=== PATIENT | female | born 1980 | race Caucasian/White ===

== ENCOUNTER 2016-07-09 16:55 | Emergency (ER) | payer OTHER ==
[~2016-07-09] VITALS: Ht 160 cm; Wt 104.3 kg
[~2016-07-09 16:55] MED LIST: ESTR1TAB24 PO; LEVO50TA6 PO; ORUDIS PO
--- NOTE | 2016-07-09 17:42 | ED Upper Extremity ---
General Chief Complaint: Laceration Stated Complaint: L HAND THUMB LAC Nursing Triage Note: AMB TO ROOM WAS USING KNIFE AT WORK AVULSED AREA ON L THUMB Nursing Sepsis Screen: No Definite Risk Source: patient Exam Limitations: no limitations History of Present Illness Time seen by provider: 17:39 Initial Comments To ER with an avulsion to the tip of her left thumb that occurred while making a food item at work at [employer] as prior to arrival. Tetanus is up-to-date. Onset: just prior to arrival Severity: mild Pain/Injury Location: left thumb Modifying Factors: Worse With Movement Allergies and Home Medications Allergies Coded Allergies: Penicillins (Verified Allergy, Mild, 10/24/14) Sulfa (Sulfonamide Antibiotics) (Verified Allergy, Mild, 10/24/14) aspirin (Verified Allergy, Mild, 10/24/14) Home Medications Estradiol 1 Mg Tablet, 1 MG PO, (Reported) Levothyroxine Sodium 50 Mcg Tablet, 50 MCG PO, (Reported) [Orudis] , 75 MG PO Q8H PRN for PAIN, #30 Ref 0 Prescribed by: ARACELI ODELL on 10/24/14 0713 Constitutional: see HPI EENTM: see HPI Respiratory: no symptoms reported Cardiovascular: no symptoms reported Genitourinary: no symptoms reported Musculoskeletal: see HPI Skin: no symptoms reported Psychiatric/Neurological: No Symptoms Reported Past Kqddpjl-Pqoihf-Vagqqq Hx Patient Social History Alcohol Use: Denies Use Recreational Drug Use: No Smoking Status: Never a Smoker Recent Foreign Travel: No Contact w/Someone Who Travel: No Recent Infectious Disease Expo: No Recent Hopitalizations: No Surgeries HX Surgeries: Yes Surgeries: Gallbladder, Hysterectomy, Tubal Ligation Respiratory Hx Respiratory Disorders: No Cardiovascular Hx Cardiac Disorders: No Neurological Hx Neurological Disorders: No Genitourinary Hx Genitourinary Disorders: No Gastrointestinal Hx Gastrointestinal Disorders: No Musculoskeletal Hx Musculoskeletal Disorders: Yes Musculoskeletal Disorders: Rheumatoid Arthritis Endocrine Hx Endocrine Disorders: Yes Endocrine Disorders: Hypothyroidsim HEENT HX ENT Disorders: No Cancer Hx Cancer: No Psychosocial Hx Psychiatric Problems: No Integumentary HX Skin/Integumentary Disorder: No Blood Transfusions Hx Blood Disorders: No Physical Exam Vital Signs Vital Sign - Last 12Hours 07/09/16 17:20 Temp 96.5 Pulse 83 Resp 18 B/P (MAP) 130/102 Pulse Ox 97 O2 Delivery Room Air Capillary Refill : Less Than 3 Seconds General Appearance: WD/WN, no apparent distress HEENT: PERRL/EOMI, normal ENT inspection Neck: non-tender, full range of motion Respiratory: no respiratory distress, no accessory muscle use Gastrointestinal: non tender, soft Shoulder: normal inspection, non-tender Elbow/Forearm: normal inspection, Left Wrist: Yes normal inspection, Yes non-tender Hand: Left, laceration Neurologic/Psychiatric: alert, normal mood/affect, oriented x 3 Skin: normal color, warm/dry Progress/Results/Core Measures Results/Orders Vital Signs/I&O Vital Sign - Last 12Hours 07/09/16 17:20 Temp 96.5 Pulse 83 Resp 18 B/P (MAP) 130/102 Pulse Ox 97 O2 Delivery Room Air Blood Pressure Mean: 111 Departure Communication Progress Notes Glue was applied to the fingertip to achieve hemostasis Impression Impression: Primary Impression: Fingertip avulsion Disposition: 01 HOME, SELF-CARE Condition: Stable Departure-Patient Inst. Decision time for Depature: 17:41 Referrals: [facility] (PCP) Primary Care Physician CRISTA DAVIS (Family) Primary Care Physician Patient Instructions: SKIN AVULSION Add. Discharge Instructions: 1. Return to ER for any concerns 2. Follow-up with your doctor next week 3. Wear the finger to protect her at all times for the next 2-3 days All discharge instructions reviewed with patient and/or family. Voiced understanding. VALERIE ROSAS MARKETING RECRUITER Jul 09, 2016 17:41
[2016-07-09 17:59] VITALS: BP 135/92
== END 2016-07-09 18:00 | disposition home or self-care (01) ==
LOC: EDUNIT# 16:55 → ER 16:57
DX: S61.012A Laceration without foreign body of left thumb without damage to nail, initial encounter (principal); W26.0XXA Contact with knife, initial encounter; Y92.511 Restaurant or cafe as the place of occurrence of the external cause; Y93.G1 Activity, food preparation and clean up; Y99.0 Civilian activity done for income or pay
CPT/HCPCS: 99282

== ENCOUNTER 2018-02-25 00:12 | Emergency (ER) | payer SELFPAY ==
[~2018-02-25] VITALS: Ht 160 cm; Wt 108.9 kg
--- OUTSIDE RECORDS SUMMARY | 2018-02-25 00:18 | XMS REPORT ---
Author Author KISHA HAM Organization [facility] Address [address] 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 [id number] [address] Sep, 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 [facility] [id number] [address] July, Lumbago with sciatica, left side M54.42 [facility] [id number] [address] Jun, [facility] [id number] [address] Jun, [facility] [id number] [place] [address] May, Lumbago with sciatica, left side M54.42 [address] [address] May, [address] [id number] [place] [address] Apr, 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 and BMI 40.0-44.9, adult Z68.41 [address] [id number] [place] [address] Apr, [address] [address] Apr, Mild episode of recurrent major depressive disorder F33.0 and BMI 40.0-44.9, adult Z68.41 [address] [address] [address] [address] Mar, Hyperlipidemia LDL goal <100 E78.5 [place] [address] [address] Mar, [place] [id number] [place] [address] Mar, Hyperlipidemia LDL goal <100 E78.5 ; Elevated blood sugar level R73.9 and Elevated rheumatoid factor R76.8 [place] [id number] [place] [address] Mar, Arthralgia, unspecified joint M25.50 ; BMI 40.0-44.9, adult Z68.41 ; Lumbago with sciatica, left side M54.42 ; Hyperlipidemia LDL goal <100 E78.5 and Hx of bipolar disorder Z86.59 [address] [place] [id number] [place] [address] Mar, [facility] [id number] [place] [address] Feb, Other viral agents as the cause of diseases classified elsewhere B97.89 ; Acute upper respiratory infection, unspecified J06.9 and BMI 40.0-44.9, adult Z68.41 [id number] [place] [address] Jun, Positive depression screening R68.89 ; Anxiety, generalized F41.1 and Severe episode of recurrent major depressive disorder, without psychotic features F33.[address] [address] Jun, Anxiety, generalized F41.1 ; Severe episode of recurrent major depressive disorder, without psychotic features F33.2 and Bipolar 1 disorder with moderate carin F31.[address] [address] Jun, [address] [address] Apr, Puncture wound T14.8 and Struck by chicken, initial encounter W61.32XA [address] [address] Apr, Puncture wound T14.8 and Struck by chicken, initial encounter W61.32XA [id number] [place] [address] 8962 Apr, [address] [address] Apr, Fever, unspecified fever cause R50.9 and Eustachian tube dysfunction, bilateral H69.83 [id number] [place] [address] Feb, Severe episode of recurrent major depressive disorder, without psychotic features F33.2 and Hyperlipidemia LDL goal <100 E78.5 [id number] [place] [address] Jan, Anxiety, generalized F41.1 ; Severe episode of recurrent major depressive disorder, without psychotic features F33.2 ; Bipolar 1 disorder with moderate carin F31.12 and Positive depression screening R68.89 [facility] [id number] [address] Jan, Chest discomfort R07.89 and Positive depression screening R68.89 [facility] [address] [address] Oct, Laceration T14.8 [facility] [address] [id number] Aug, Dental examination V72.2 IMMUNIZATIONS No Known Immunizations SOCIAL HISTORY Never Assessed REASON FOR VISIT Rheum Records PLAN OF CARE VITAL SIGNS MEDICATIONS Medication Instructions Dosage Frequency Start Date End Date Duration Status Indomethacin 50 mg Orally Twice a day 1 capsule with food or milk 12h Mar, 90 days Active RESULTS No Results PROCEDURES No Known procedures INSTRUCTIONS MEDICATIONS ADMINISTERED No Known Medications MEDICAL (GENERAL) HISTORY Type Description Date Medical History Bipolar Disorder Medical History hx seizures, grand-mal up to age 2 y/o Medical History RA Medical History hypercholesterolemia Surgical History cholecystectomy 2000 Surgical History tubal ligation 2002 Surgical History hysterectomy 2014 Hospitalization History Childbirth Hospitalization History Suicide attempt, inpatient treatment [facility] 2011
--- OUTSIDE RECORDS SUMMARY | 2018-02-25 00:18 | XMS REPORT ---
Author Author KISHA HAM Organization [facility] Address [address] [place] [address] Care Team Providers Care Patient Transition Specialist Name Role Phone KISHA HAM Unavailable PROBLEMS Type Condition ICD9-CM Code UPW03-GA Code Onset Dates Condition Status SNOMED Code Problem Anxiety, generalized F41.1 Active 45587094 Problem Bipolar 1 disorder with moderate carin F31.12 Active 20826725 Problem Severe episode of recurrent major depressive disorder, without psychotic features F33.2 Active 17632323 Problem Abnormal glucose level R73.09 Active 778624807 Problem Hyperlipidemia LDL goal <100 E78.5 Active 03893996 Problem Elevated rheumatoid factor R76.8 Active 719409045 Problem 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 Active 742892719 Problem Mild episode of recurrent major depressive disorder F33.0 Active 994050538 Problem Arthralgia, unspecified joint M25.50 Active 52593345 Problem Lumbago with sciatica, left side M54.42 Active 587760202 Problem Elevated blood sugar level R73.9 Active 71299198 Problem Hx of bipolar disorder Z86.59 Active 305733198 ALLERGIES No Information ENCOUNTERS Encounter Location Date Diagnosis [facility] [id number] [address] Sep, 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 [facility] [id number] [address] July, Lumbago with sciatica, left side M54.42 [facility] [id number] [address] Jun, [facility] [id number] [address] Jun, [facility] [id number] [place] [address] May, Lumbago with sciatica, left side M54.42 [place] [address] [address] May, [address] [id number] [place] [address] Apr, 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 and BMI 40.0-44.9, adult Z68.41 [address] [id number] [place] [address]- [address] Apr, [place] [address] [address] [address] Apr, Mild episode of recurrent major depressive disorder F33.0 and BMI 40.0-44.9, adult Z68.41 [place] [address] [address] [address] Mar, Hyperlipidemia LDL goal <100 E78.5 [place] [address] [address] Mar, [place] [id number] [place] [address]- [address] Mar, Hyperlipidemia LDL goal <100 E78.5 ; Elevated blood sugar level R73.9 and Elevated rheumatoid factor R76.8 [place] [id number] [place] [address] Mar, Arthralgia, unspecified joint M25.50 ; BMI 40.0-44.9, adult Z68.41 ; Lumbago with sciatica, left side M54.42 ; Hyperlipidemia LDL goal <100 E78.5 and Hx of bipolar disorder Z86.59 [address] [id number] [place] [address] Mar, [facility] [id number] [place] [address] Feb, Other viral agents as the cause of diseases classified elsewhere B97.89 ; Acute upper respiratory infection, unspecified J06.9 and BMI 40.0-44.9, adult Z68.41 [id number] [place] [address] Jun, Positive depression screening R68.89 ; Anxiety, generalized F41.1 and Severe episode of recurrent major depressive disorder, without psychotic features F33.[address] [address] Jun, Anxiety, generalized F41.1 ; Severe episode of recurrent major depressive disorder, without psychotic features F33.2 and Bipolar 1 disorder with moderate carin F31.[address] [address]- [address] Jun, [address] [address] Apr, Puncture wound T14.8 and Struck by chicken, initial encounter W61.32XA [address] [address] Apr, Puncture wound T14.8 and Struck by chicken, initial encounter W61.[address] [place] [address]- [address]47 Apr, [address] [address] Apr, Fever, unspecified fever cause R50.9 and Eustachian tube dysfunction, bilateral H69.83 [address] [place] [address]- [address] Feb, Severe episode of recurrent major depressive disorder, without psychotic features F33.2 and Hyperlipidemia LDL goal <100 E78.5 [address] [place] [address]- [address] Jan, Anxiety, generalized F41.1 ; Severe episode of recurrent major depressive disorder, without psychotic features F33.2 ; Bipolar 1 disorder with moderate carin F31.12 and Positive depression screening R68.89 [facility] [address] [address] Jan, Chest discomfort R07.89 and Positive depression screening R68.89 [facility] [address] [address] Oct, Laceration T14.[address] [facility] [address] [id number] Aug, Dental examination V72.2 IMMUNIZATIONS No Known Immunizations SOCIAL HISTORY Never Assessed REASON FOR VISIT Requests return call PLAN OF CARE VITAL SIGNS MEDICATIONS Unknown Medications RESULTS No Results PROCEDURES No Known procedures [...]
--- OUTSIDE RECORDS SUMMARY | 2018-02-25 00:18 | XMS REPORT ---
Author Author KISHA HAM Organization [facility] Address [address] [place] [address] Care Team Providers Care Heater Worker Name Role Phone KISHA HAM Unavailable PROBLEMS Type Condition ICD9-CM Code KBI69-SA Code Onset Dates Condition Status SNOMED Code Problem Anxiety, generalized F41.1 Active 40661211 Problem Bipolar 1 disorder with moderate carin F31.12 Active 33050883 Problem Severe episode of recurrent major depressive disorder, without psychotic features F33.2 Active 67467762 Problem Abnormal glucose level R73.09 Active 617909211 Problem Hyperlipidemia LDL goal <100 E78.5 Active 83884049 Problem Elevated rheumatoid factor R76.8 Active 580280317 Problem 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 Active 389107505 Problem Mild episode of recurrent major depressive disorder F33.0 Active 671000421 Problem Arthralgia, unspecified joint M25.50 Active 42991819 Problem Lumbago with sciatica, left side M54.42 Active 224633562 Problem Elevated blood sugar level R73.9 Active 14985537 Problem Hx of bipolar disorder Z86.59 Active 714015612 ALLERGIES Substance Reaction Event Type Date Status Sulfamethoxazole-Trimethoprim rash Drug Allergy Apr, Active Rocephin rash Drug Allergy Apr, Active Penicillin V Potassium rash Drug Allergy Apr, Active Iodine rash Drug Allergy Apr, Active Doxy-Caps rash Drug Allergy Apr, Active 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 Drug Allergy Apr, Active ENCOUNTERS Encounter Location Date Diagnosis [facility] [address], [place] [address] July, Lumbago with sciatica, left side M54.42 [facility] [id number], [place] [address] Jun, [facility] [address], [place] [address] Jun, [id number] [place] [address] May, Lumbago with sciatica, left side M54.42 [place] [id number] [place] [address]- [address] May, [place] [id number] [place] [address]- [address]95 Apr, 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 and BMI 40.0-44.9, adult Z68.41 [place] [id number] [place] [address]- [address] Apr, [address] [id number] [place] [address]- 2865 Apr, Mild episode of recurrent major depressive disorder F33.0 and BMI 40.0-44.9, adult Z68.41 [place] [id number] [place] [address] 8[address]- 8866 Mar, Hyperlipidemia LDL goal <100 E78.5 [place] [id number] [place] [address]- 2803 Mar, [address] [place] [address]36- [address] Mar, Hyperlipidemia LDL goal <100 E78.5 ; Elevated blood sugar level R73.9 and Elevated rheumatoid factor R76.8 [place] [place] [place] [address]- [address]60 Mar, Arthralgia, unspecified joint M25.50 ; BMI 40.0-44.9, adult Z68.41 ; Lumbago with sciatica, left side M54.42 ; Hyperlipidemia LDL goal <100 E78.5 and Hx of bipolar disorder Z86.59 [place] [id number] [place] [address]- [address] Mar, [facility] [address] [place] [address] Feb, Other viral agents as the cause of diseases classified elsewhere B97.89 ; Acute upper respiratory infection, unspecified J06.9 and BMI 40.0-44.9, adult Z68.41 [id number] [place] [address] Jun, Positive depression screening R68.89 ; Anxiety, generalized F41.1 and Severe episode of recurrent major depressive disorder, without psychotic features F33.2 [id number] [place] [address]- [address]77 Jun, Anxiety, generalized F41.1 ; Severe episode of recurrent major depressive disorder, without psychotic features F33.2 and Bipolar 1 disorder with moderate carin F31.12 [address] [place] [address] 9[address]- 86[address] Jun, [place] [id number] [place] [address] 47[address]- [address] Apr, Puncture wound T14.8 and Struck by chicken, initial encounter W61.32XA [address] [place] [address] 93974- 9373 Apr, Puncture wound T14.8 and Struck by chicken, initial encounter W61.32XA [address] [place] [address] 12981- 7354 Apr, [address] [place] [address] 19669- 7042 Apr, Fever, unspecified fever cause R50.9 and Eustachian tube dysfunction, bilateral H69.83 [address] [place] [address]- 0556 Feb, Severe episode of recurrent major depressive disorder, without psychotic features F33.2 and Hyperlipidemia LDL goal <100 E78.5 [id number] [address] Jan, 2016 Anxiety, generalized F41.1 ; Severe episode of recurrent major depressive disorder, without psychotic features F33.2 ; Bipolar 1 disorder with moderate carin F31.12 and Positive depression screening R68.89 [facility] [id number] [address] 30 Jan, 2016 Chest discomfort R07.89 and Positive depression screening R68.89 [facility] [id number] [address] Oct, Laceration T14.8 [facility] [address] [place] [id number] Aug, Dental examination V72.2 IMMUNIZATIONS No Known Immunizations SOCIAL HISTORY Never Assessed REASON FOR VISIT RA Consult-Jose DICKERSON PLAN OF CARE Activity Details Follow Up we will call (need records) Reason: VITAL SIGNS Height 63 in 2017-05-15 Weight 236.3 lbs 2017-05-15 Temperature 97.6 degrees Fahrenheit 2017-05-15 Heart Rate 86 bpm 2017-05-15 Respiratory Rate 18 2017-05-15 BMI 41.85 kg/m2 2017-05-15 Blood pressure systolic 132 mmHg 2017-05-15 Blood pressure diastolic 78 mmHg 2017-05-15 MEDICATIONS Medication Instructions Dosage Frequency Start Date End Date Duration Status Lovastatin 20 MG Orally Once a day 1 tablet with a meal 24h Feb, 90 Active Paxil 10 MG Orally Once a day 1 tablet in the morning 24h Feb, 30 day(s) Not-Taking Meloxicam 15 MG Orally Once a day 1 tablet 24h Jun, 30 day(s) Not-Taking Indomethacin 50 mg Orally Twice a day 1 capsule with food or milk 12h Mar, May, 45 days Active RESULTS No Results PROCEDURES Procedure Date Ordered Result Body Site CCP ANTIBODY May 15, 2017 VENIPUNCT, ROUTINE* May 15, 2017 INSTRUCTIONS MEDICATIONS ADMINISTERED No Known Medications MEDICAL (GENERAL) HISTORY Type Description Date Medical History Bipolar Disorder Medical History hx seizures, grand-mal up to age 2 y/o Medical History RA Medical History hypercholesterolemia Surgical History cholecystectomy 2000 Surgical History tubal ligation 2002 Surgical History hysterectomy 2013 Hospitalization History Childbirth Hospitalization History Suicide attempt, inpatient treatment [facility] 2012
--- OUTSIDE RECORDS SUMMARY | 2018-02-25 00:18 | XMS REPORT ---
Author Author KISHA HAM Organization [facility] Address [address] [place] [address] Care Team Providers Care Manager Rail Name Role Phone KISHA HAM Unavailable PROBLEMS Type Condition ICD9-CM Code [id number] Code Onset Dates Condition Status SNOMED Code Problem Anxiety, generalized F41.1 Active 78967668 Problem Bipolar 1 disorder with moderate carin F31.12 Active 67807399 Problem Severe episode of recurrent major depressive disorder, without psychotic features F33.2 Active 35293961 Problem Abnormal glucose level R73.09 Active 349953936 Problem Hyperlipidemia LDL goal <100 E78.5 Active 02961100 Problem Elevated rheumatoid factor R76.8 Active 221463057 Problem 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 [id number] [address] Sep, 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 [facility] [id number] [address] July, Lumbago with sciatica, left side M54.42 [facility] [id number] [address] Jun, [facility] [id number] [address] Jun, [facility] [id number] [place] [address] May, Lumbago with sciatica, left side M54.42 [place] [address] [address] [address] May, [place] [id number] [place] [address] Apr, 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 and BMI 40.0-44.9, adult Z68.41 [place] [id number] [place] [address] Apr, [place] [address] [address] Apr, Mild episode of recurrent major depressive disorder F33.0 and BMI 40.0-44.9, adult Z68.41 [place] [address] [address] Mar, Hyperlipidemia LDL goal <100 E78.5 [place] [address] [address] Mar, [place] [id number] [place] [address]42[address] 7[address] Mar, Hyperlipidemia LDL goal <100 E78.5 ; Elevated blood sugar level R73.9 and Elevated rheumatoid factor R76.8 [place] [id number] [place] [address] 3[address] Mar, Arthralgia, unspecified joint M25.50 ; BMI 40.0-44.9, adult Z68.41 ; Lumbago with sciatica, left side M54.42 ; Hyperlipidemia LDL goal <100 E78.5 and Hx of bipolar disorder Z86.59 [place] [id number] [place] [address]46- 6[address] Mar, [facility] WALK IN [facility] [id number] [place] [address] Feb, Other viral agents as the cause of diseases classified elsewhere B97.89 ; Acute upper respiratory infection, unspecified J06.9 and BMI 40.0-44.9, adult Z68.41 [address] [id number] [place] [address] 79446- 9658 Jun, Positive depression screening R68.89 ; Anxiety, generalized F41.1 and Severe episode of recurrent major depressive disorder, without psychotic features F33.[address] [address] Jun, Anxiety, generalized F41.1 ; Severe episode of recurrent major depressive disorder, without psychotic features F33.2 and Bipolar 1 disorder with moderate carin F31.[address] [address]- [address] Jun, [address] [address] Apr, Puncture wound T14.8 and Struck by chicken, initial encounter W61.32XA [address] [address] Apr, Puncture wound T14.8 and Struck by chicken, initial encounter W61.32XA [place] [id number] [place] [address] 3792 Apr, [address] [address]- [address] Apr, Fever, unspecified fever cause R50.9 and Eustachian tube dysfunction, bilateral H69.83 [place] [id number] [place] [address] 0[address]- [address] Feb, Severe episode of recurrent major depressive disorder, without psychotic features F33.2 and Hyperlipidemia LDL goal <100 E78.5 [address] [id number] [place] [address] 67916- 2[address] Jan, Anxiety, generalized F41.1 ; Severe episode of recurrent major depressive disorder, without psychotic features F33.2 ; Bipolar 1 disorder with moderate carin F31.12 and Positive depression screening R68.89 [facility] [id number] [address] Jan, Chest discomfort R07.89 and Positive depression screening R68.89 [facility] [address] [address] Oct, Laceration T14.8 [facility] [id number] [id number] Aug, Dental examination V72.2 IMMUNIZATIONS No Known Immunizations SOCIAL HISTORY Never Assessed REASON FOR VISIT Orders from Results PLAN OF CARE VITAL SIGNS MEDICATIONS Medication Instructions Dosage Frequency Start Date End Date Duration Status Leflunomide 20 MG Orally Once a day x 3 days, then decrease to 1 tablet daily thereafter 5 tablets with food Sep, 30 days Active RESULTS No Results PROCEDURES No [...]
--- OUTSIDE RECORDS SUMMARY | 2018-02-25 00:18 | XMS REPORT ---
Author Author CRISTA DAVIS [facility] Address [address] [place] [address] Care Team Providers Care Dimension Warehouse Supervisor Name Role Phone CRISTA DAVIS Unavailable PROBLEMS Type Condition ICD9-CM Code INC84-[id number] Code Onset Dates Condition Status SNOMED Code Problem Anxiety, generalized F41.1 Active 57959406 Problem Bipolar 1 disorder with moderate carin F31.12 Active 19744438 Problem Severe episode of recurrent major depressive disorder, without psychotic features F33.2 Active 42100939 Problem Abnormal glucose level R73.09 Active 664760654 Problem Hyperlipidemia LDL goal <100 E78.5 Active 42950846 Problem Elevated rheumatoid factor R76.8 Active 632798458 Problem 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 Active 215833493 Problem Mild episode of recurrent major depressive disorder F33.0 Active 896382273 Problem Arthralgia, unspecified joint M25.50 Active 87782988 Problem Lumbago with sciatica, left side M54.42 Active 778401277 Problem Elevated blood sugar level R73.9 Active 30400027 Problem Hx of bipolar disorder Z86.59 Active 617113435 ALLERGIES No Information ENCOUNTERS Encounter Location Date Diagnosis [facility] [address], [place] [address] Sep, 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 [facility] [address], [place] [address] July, Lumbago with sciatica, left side M54.42 [facility] [address], [place] [address] Jun, [facility] [address], [place] [address] Jun, [facility] [id number] [place] [address] May, Lumbago with sciatica, left side M54.42 [place] [id number] [place] [address]- [address] May, [place] [id number] [place] [address] 61465- 8407 Apr, 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 and BMI 40.0-44.9, adult Z68.41 [place] [id number] [place] [address]- [address] Apr, [place] [address] [address] Apr, Mild episode of recurrent major depressive disorder F33.0 and BMI 40.0-44.9, adult Z68.41 [place] [id number] [place] [address]39- 40[address] Mar, Hyperlipidemia LDL goal <100 E78.5 [place] [id number] [place] [address]22- 9274 Mar, [place] [id number] [place] [address] 55253- 1663 Mar, Hyperlipidemia LDL goal <100 E78.5 ; Elevated blood sugar level R73.9 and Elevated rheumatoid factor R76.8 [place] [id number] [place] [address] 62[address]- 7[address] Mar, Arthralgia, unspecified joint M25.50 ; BMI 40.0-44.9, adult Z68.41 ; Lumbago with sciatica, left side M54.42 ; Hyperlipidemia LDL goal <100 E78.5 and Hx of bipolar disorder Z86.59 [place] [id number] [place] [address]- [address] Mar, [facility] WALK IN [facility] [id number] [place] [address] Feb, Other viral agents as the cause of diseases classified elsewhere B97.89 ; Acute upper respiratory infection, unspecified J06.9 and BMI 40.0-44.9, adult Z68.41 [id number] [place] [address]32- 6[address] Jun, Positive depression screening R68.89 ; Anxiety, generalized F41.1 and Severe episode of recurrent major depressive disorder, without psychotic features F33.2 [address] [place] [address]- [address] Jun, Anxiety, generalized F41.1 ; Severe episode of recurrent major depressive disorder, without psychotic features F33.2 and Bipolar 1 disorder with moderate carin F31.12 [address] [place] [address]69- 8644 Jun, [address] [address]- [address] Apr, Puncture wound T14.8 and Struck by chicken, initial encounter W61.32XA [address] [address] [address] [place] [address] 82433- 8857 Apr, Puncture wound T14.8 and Struck by chicken, initial encounter W61.32XA [address] [address] [place] [address] 46926- 9448 Apr, [address] [place] [address] 54044- 4660 Apr, Fever, unspecified fever cause R50.9 and Eustachian tube dysfunction, bilateral H69.[address] [address]- [address] Feb, Severe episode of recurrent major depressive disorder, without psychotic features F33.2 and Hyperlipidemia LDL goal <100 E78.5 [address] [address] [address] [place] [address] 59034- 90[address] Jan, Anxiety, generalized F41.1 ; Severe episode of recurrent major depressive disorder, without psychotic features F33.2 ; Bipolar 1 disorder with moderate carin F31.12 and Positive depression screening R68.89 [facility] [address] [address] Jan, Chest discomfort R07.89 and Positive depression screening R68.89 [facility] WALK IN [facility] [address], [place] [address] Oct, Laceration T14.8 [facility] [address] [id number] Aug, Dental examination V72.2 IMMUNIZATIONS No Known Immunizations SOCIAL HISTORY Never Assessed REASON FOR VISIT PLAN OF CARE VITAL SIGNS MEDICATIONS Unknown [...]
--- OUTSIDE RECORDS SUMMARY | 2018-02-25 00:19 | XMS REPORT ---
Author Author CRISTA DAVIS Organization [facility] Address [address] [place] [address] Care Team Providers Care Cupola Melter Helper Name Role Phone CRISTA DAVIS Unavailable PROBLEMS Type Condition ICD9-CM Code DCD54-[id number] Code Onset Dates Condition Status SNOMED Code Problem Anxiety, generalized F41.1 Active 53722134 Problem Severe episode of recurrent major depressive disorder, without psychotic features F33.2 Active 05470645 Problem Positive depression screening R68.89 Active 488006194318491 Problem Hyperlipidemia LDL goal <100 E78.5 Active 46067917 Problem Bipolar 1 disorder with moderate carin F31.12 Active 85747286 Problem Chest discomfort R07.89 Active 841745874 ALLERGIES Substance Reaction Event Type Date Status Sulfamethoxazole-Trimethoprim Unknown Drug Allergy Feb, Active Penicillin V Potassium Unknown Drug Allergy Feb, Active Iodine Unknown Drug Allergy Feb, Active Doxy-Caps Unknown Drug Allergy Feb, Active Aspir-81 Unknown Drug Allergy Feb, Active SOCIAL HISTORY No smoking Hx information available PLAN OF CARE Activity Details Follow Up 4 Weeks Reason:BH chol med VITAL SIGNS Height 63 in 2016-03-07 Weight 230.4 lbs 2016-03-07 Temperature 97.6 degrees Fahrenheit 2016-03-07 Heart Rate 96 bpm 2016-03-07 Respiratory Rate 2016-03-07 BMI 40.81 kg/m2 2016-03-07 Blood pressure systolic 136 mmHg 2016-03-07 Blood pressure diastolic 86 mmHg 2016-03-07 MEDICATIONS Medication Instructions Dosage Frequency Start Date End Date Duration Status Lovastatin 10 MG Orally Once a day 1 tablet with a meal 24h Feb, 90 Active Paxil 10 MG Orally Once a day 1 tablet in the morning 24h Feb, 30 day(s) Active RESULTS No Results PROCEDURES Procedure Date Ordered Related Diagnosis Body Site Office Visit, Est Pt., Level 3 Mar 07, 2016 IMMUNIZATIONS No Known Immunizations
--- OUTSIDE RECORDS SUMMARY | 2018-02-25 00:19 | XMS REPORT ---
Author Author CRISTA DAVIS [facility] Address [address] [place] [address] Care Team Providers Care Crotch Piece Baster Name Role Phone CRISTA DAVIS Unavailable PROBLEMS Type Condition ICD9-CM Code MYI63-CA Code Onset Dates Condition Status SNOMED Code Problem Anxiety, generalized F41.1 Active 91235523 Problem Bipolar 1 disorder with moderate carin F31.12 Active 32879901 Problem Severe episode of recurrent major depressive disorder, without psychotic features F33.2 Active 22187740 Problem Abnormal glucose level R73.09 Active 492688524 Problem Hyperlipidemia LDL goal <100 E78.5 Active 94940821 Problem Elevated rheumatoid factor R76.8 Active 918991960 Problem 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 [address] [place] [address] July, Lumbago with sciatica, left side M54.42 [facility] [address], [place] [address] Jun, [facility] [id number] [place] [address]68- [address]265 Jun, [facility] [address] [address] May, Lumbago with sciatica, left side M54.42 [place] [address] [place] [address]69- [address] May, [place] [address] [address] Apr, 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 and BMI 40.0-44.9, adult Z68.[address] [address] Apr, [place] [address] [place] [address] 51467- 9641 Apr, Mild episode of recurrent major depressive disorder F33.0 and BMI 40.0-44.9, adult Z68.41 [place] [address] [place] [address] 24052- 3302 Mar, Hyperlipidemia LDL goal <100 E78.5 [address] [id number] [place] [address] 72276- 1340 Mar, [place] [id number] [place] [address] 94535- 7627 Mar, Hyperlipidemia LDL goal <100 E78.5 ; Elevated blood sugar level R73.9 and Elevated rheumatoid factor R76.8 [address] [place] [place] [address] 46762- 6926 Mar, Arthralgia, unspecified joint M25.50 ; BMI 40.0-44.9, adult Z68.41 ; Lumbago with sciatica, left side M54.42 ; Hyperlipidemia LDL goal <100 E78.5 and Hx of bipolar disorder Z86.59 [address] [place] [address]25- [address] Mar, [facility] IN [facility] [address] [place] [address] -[address] Feb, Other viral agents as the cause of diseases classified elsewhere B97.89 ; Acute upper respiratory infection, unspecified J06.9 and BMI 40.0-44.9, adult Z68.41 [address] [place] [address] 93843- 5283 Jun, Positive depression screening R68.89 ; Anxiety, generalized F41.1 and Severe episode of recurrent major depressive disorder, without psychotic features F33.[address] [address]- [address] Jun, Anxiety, generalized F41.1 ; Severe episode of recurrent major depressive disorder, without psychotic features F33.2 and Bipolar 1 disorder with moderate carin F31.[address] [address]- [address] Jun, [place] [address] [address]87 Apr, Puncture wound T14.8 and Struck by chicken, initial encounter W61.32XA [address] 36[address]- 0863 Apr, Puncture wound T14.8 and Struck by chicken, initial encounter W61.32XA [address] 288128- 1120 Apr, [address] 7[address]23- 7817 Apr, Fever, unspecified fever cause R50.9 and Eustachian tube dysfunction, bilateral H69.83 [address] [place] [address] 56271- 9500 Feb, Severe episode of recurrent major depressive disorder, without psychotic features F33.2 and Hyperlipidemia LDL goal <100 E78.5 [place] [address]- [address]058 Jan, Anxiety, generalized F41.1 ; Severe episode of recurrent major depressive disorder, without psychotic features F33.2 ; Bipolar 1 disorder with moderate carin F31.12 and Positive depression screening R68.89 [address] [address] Jan, Chest discomfort R07.89 and Positive depression screening R68.89 [facility] [address] [facility] [id number] [address] Oct, Laceration T14.8 [facility] [address] [facility] [id number] [address] Aug, Dental examination V72.2 IMMUNIZATIONS No Known Immunizations SOCIAL HISTORY Never Assessed REASON FOR VISIT Schedule eye exam PLAN OF CARE VITAL SIGNS MEDICATIONS Unknown [...]
--- OUTSIDE RECORDS SUMMARY | 2018-02-25 00:19 | XMS REPORT ---
Author Author KISHA HAM Organization [facility] [place] Address [address] [place] [address] Care Team Providers Care Cartography/Mapping Technician Name Role Phone KISHA HAM Unavailable PROBLEMS Type Condition ICD9-CM Code ACN04-MP Code Onset Dates Condition Status SNOMED Code Problem Anxiety, generalized F41.1 Active 19813409 Problem Bipolar 1 disorder with moderate carin F31.12 Active 74410259 Problem Severe episode of recurrent major depressive disorder, without psychotic features F33.2 Active 39712122 Problem Abnormal glucose level R73.09 Active 981727140 Problem Hyperlipidemia LDL goal <100 E78.5 Active 13157850 Problem Elevated rheumatoid factor R76.8 Active 635468430 Problem 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 Active 615203764 Problem Mild episode of recurrent major depressive disorder F33.0 Active 550505742 Problem Arthralgia, unspecified joint M25.50 Active 56753604 Problem Lumbago with sciatica, left side M54.42 Active 820856046 Problem Elevated blood sugar level R73.9 Active 59593308 Problem Hx of bipolar disorder Z86.59 Active 364468375 ALLERGIES No Information ENCOUNTERS Encounter Location Date Diagnosis [facility] [place] [id number] [address] July, Lumbago with sciatica, left side M54.42 [facility] [place] [address], [place] [address] Jun, [facility] [place] [id number] [place] [address]77[address] 6808 Jun, [facility] [place] [id number], [place] [address] May, Lumbago with sciatica, left side M54.42 [facility] [place] [id number] [place] [address] 43077- 6419 May, [place] [id number] [place] [address] 66655- 8408 Apr, 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 and BMI 40.0-44.9, adult Z68.41 [place] [id number] [place] [address] 01512- 0687 Apr, [place] [id number] [place] [address] 84093- 0812 Apr, Mild episode of recurrent major depressive disorder F33.0 and BMI 40.0-44.9, adult Z68.41 [place] [address] [place] [address] 97188- 2851 Mar, Hyperlipidemia LDL goal <100 E78.5 [place] [address] [address] Mar, [place] [id number] [place] [address] 05544- 9048 Mar, Hyperlipidemia LDL goal <100 E78.5 ; Elevated blood sugar level R73.9 and Elevated rheumatoid factor R76.8 [place] [id number] [place] [address] 08904- 9164 Mar, Arthralgia, unspecified joint M25.50 ; BMI 40.0-44.9, adult Z68.41 ; Lumbago with sciatica, left side M54.42 ; Hyperlipidemia LDL goal <100 E78.5 and Hx of bipolar disorder Z86.59 [place] [address] [place] [address] 81985- 0070 Mar, [facility] [address] [place] [address] [place] [address] 89758 -2619 Feb, Other viral agents as the cause of diseases classified elsewhere B97.89 ; Acute upper respiratory infection, unspecified J06.9 and BMI 40.0-44.9, adult Z68.[address] [id number] [place] [address] 85143- 5946 Jun, Positive depression screening R68.89 ; Anxiety, generalized F41.1 and Severe episode of recurrent major depressive disorder, without psychotic features F33.2 [place] [address] [place] [address] 64994 7392 Jun, Anxiety, generalized F41.1 ; Severe episode of recurrent major depressive disorder, without psychotic features F33.2 and Bipolar 1 disorder with moderate carin F31.12 [place] [address] [place] [address] 04359- 5071 Jun, [place] [id number] 843 Apr, Puncture wound T14.8 and Struck by chicken, initial encounter W61.32XA [address] [address]- 7048 Apr, Puncture wound T14.8 and Struck by chicken, initial encounter W61.32XA [address] 11343- 0102 Apr, [address] 17768- 4071 Apr, Fever, unspecified fever cause R50.9 and Eustachian tube dysfunction, bilateral H69.83 [place] [id number] [place] [address] 59877- 7177 Feb, Severe episode of recurrent major depressive disorder, without psychotic features F33.2 and Hyperlipidemia LDL goal <100 E78.5 [place] [address]998500- 2886 Jan, Anxiety, generalized F41.1 ; Severe episode of recurrent major depressive disorder, without psychotic features F33.2 ; Bipolar 1 disorder with moderate carin F31.12 and Positive depression screening R68.89 [address] [place] [address] Jan, Chest discomfort R07.89 and Positive depression screening R68.89 [facility] [address] [facility] [place] [id number] [place] [address] Oct, Laceration T14.8 [facility] [address] [facility] [id number] [id number] Aug, Dental examination V72.2 IMMUNIZATIONS No Known Immunizations SOCIAL HISTORY Never Assessed REASON FOR VISIT refill request PLAN OF CARE VITAL SIGNS MEDICATIONS Unknown Medications RESULTS No Results PROCEDURES No Known procedures INSTRUCTIONS MEDICATIONS ADMINISTERED No Known Medications MEDICAL (GENERAL) HISTORY Type Description Date Medical History Bipolar Disorder Medical History hx seizures, grand-mal up to age 2 y/o Medical History RA Medical History hypercholesterolemia Surgical History cholecystectomy 2001 Surgical History tubal ligation 2002 Surgical History hysterectomy 2014 Hospitalization History Childbirth Hospitalization History Suicide attempt, inpatient treatment [facility] MENDE[facility] 2011
--- OUTSIDE RECORDS SUMMARY | 2018-02-25 00:19 | XMS REPORT ---
Author Author CRISTA DAVIS [facility] Address [address] [place] [address] Care Team Providers Care Learning Disabled Teacher Name Role Phone CRISTA DAVIS Unavailable PROBLEMS Type Condition ICD9-CM Code MMH36-KI Code Onset Dates Condition Status SNOMED Code Problem Anxiety, generalized F41.1 Active 53681473 Problem Bipolar 1 disorder with moderate carin F31.12 Active 16868265 Problem Severe episode of recurrent major depressive disorder, without psychotic features F33.2 Active 45477737 Problem Abnormal glucose level R73.09 Active 563187289 Problem Hyperlipidemia LDL goal <100 E78.5 Active 33052172 Problem Elevated rheumatoid factor R76.8 Active 987785083 Problem 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 Active 418245866 Problem Mild episode of recurrent major depressive disorder F33.0 Active 252151692 Problem Arthralgia, unspecified joint M25.50 Active 80987456 Problem Lumbago with sciatica, left side M54.42 Active 944200611 Problem Elevated blood sugar level R73.9 Active 28658740 Problem Hx of bipolar disorder Z86.59 Active 808507383 ALLERGIES No Information ENCOUNTERS Encounter Location Date Diagnosis [facility] [address] [place] [address] 93737- 6074 July, Lumbago with sciatica, left side M54.42 [facility] [address], [place] [address] Jun, [facility] [id number] [place] [address] 98164- 6146 Jun, [facility] [address], [place] [address] May, Lumbago with sciatica, left side M54.42 [place] [address] [place] [address] 20110- 2060 May, [place] [address] [address]24- 7768 Apr, 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 and BMI 40.0-44.9, adult Z68.[address] [address]15- 6411 Apr, [place] [id number] [place] [address] 16304- 7483 Apr, Mild episode of recurrent major depressive disorder F33.0 and BMI 40.0-44.9, adult Z68.41 [place] [id number] [place] [address] 79834- 8488 Mar, Hyperlipidemia LDL goal <100 E78.5 [place] [id number] [place] [address] 62775- 3557 Mar, [place] [id number] [place] [address] 87267- 4254 Mar, Hyperlipidemia LDL goal <100 E78.5 ; Elevated blood sugar level R73.9 and Elevated rheumatoid factor R76.8 [place] [id number] [place] [address] 53443- 2853 Mar, Arthralgia, unspecified joint M25.50 ; BMI 40.0-44.9, adult Z68.41 ; Lumbago with sciatica, left side M54.42 ; Hyperlipidemia LDL goal <100 E78.5 and Hx of bipolar disorder Z86.59 [place] [id number] [place] [address] 07665- 4795 Mar, [facility] [address] [place] [address] 40235 -0713 Feb, Other viral agents as the cause of diseases classified elsewhere B97.89 ; Acute upper respiratory infection, unspecified J06.9 and BMI 40.0-44.9, adult Z68.41 [place] [address] [place] [address] 28335- 1880 Jun, Positive depression screening R68.89 ; Anxiety, generalized F41.1 and Severe episode of recurrent major depressive disorder, without psychotic features F33.[address] [address]- [address] Jun, Anxiety, generalized F41.1 ; Severe episode of recurrent major depressive disorder, without psychotic features F33.2 and Bipolar 1 disorder with moderate carin F31.[address] 69999- 9852 Jun, [place] [address] 4778 Apr, Puncture wound T14.8 and Struck by chicken, initial encounter W61.32XA [address] 26847- 5463 Apr, Puncture wound T14.8 and Struck by chicken, initial encounter W61.32XA [address] 391345- 5654 Apr, [address] 21070- 7163 Apr, Fever, unspecified fever cause R50.9 and Eustachian tube dysfunction, bilateral H69.83 [place] [id number] [place] [address] 03350- 2286 Feb, Severe episode of recurrent major depressive disorder, without psychotic features F33.2 and Hyperlipidemia LDL goal <100 E78.5 [place] 35701112- 5064 Jan, Anxiety, generalized F41.1 ; Severe episode of recurrent major depressive disorder, without psychotic features F33.2 ; Bipolar 1 disorder with moderate carin F31.12 and Positive depression screening R68.89 [address] [address] Jan, Chest discomfort R07.89 and Positive depression screening R68.89 [facility] [address] [facility] [id number] [address] Oct, Laceration T14.8 [facility] [address] [facility] [id number] [id number] Aug, Dental examination V72.2 IMMUNIZATIONS No Known Immunizations SOCIAL HISTORY Never Assessed REASON FOR VISIT Lab (walk-in) PLAN OF CARE VITAL SIGNS MEDICATIONS Unknown Medications RESULTS Name Result Date Reference Range A1C (IN HOUSE) 2017-04-16 A1C IN HOUSE 5.5 4.3 - 5.6 % Previous A1c n/a Lot [id number] Exp date 10/2018 PROCEDURES Procedure Date Ordered Result Body Site GLYCATED HEMOGLOBIN TEST Apr 16, 2017 INSTRUCTIONS MEDICATIONS ADMINISTERED No Known Medications [...]
--- OUTSIDE RECORDS SUMMARY | 2018-02-25 00:19 | XMS REPORT ---
Author Author CRISTA DAVIS [facility] Address [address] [place] [address] Care Team Providers Care Boot Liner Maker Name Role Phone CRISTA DAVIS Unavailable PROBLEMS Type Condition ICD9-CM Code TXB81-TM Code Onset Dates Condition Status SNOMED Code Problem Bipolar 1 disorder with moderate carin F31.12 Active 47723406 Problem Anxiety, generalized F41.1 Active 89736551 Problem Positive depression screening R68.89 Active 031212813361491 Problem Hyperlipidemia LDL goal <100 E78.5 Active 41095086 Problem Severe episode of recurrent major depressive disorder, without psychotic features F33.2 Active 06759344 Problem Chest discomfort R07.89 Active 752168909 ALLERGIES Substance Reaction Event Type Date Status Sulfamethoxazole-Trimethoprim Unknown Drug Allergy Apr, Active Rocephin rash Drug Allergy Apr, Active Penicillin V Potassium Unknown Drug Allergy Apr, Active Iodine Unknown Drug Allergy Apr, Active Doxy-Caps Unknown Drug Allergy Apr, Active Aspir-81 Unknown Drug Allergy Apr, Active SOCIAL HISTORY Never Assessed PLAN OF CARE Activity Details Follow Up if not improving or reg follow up Reason: VITAL SIGNS Height 63 in 2016-05-11 Weight 233.2 lbs 2016-05-11 Temperature 97.9 degrees Fahrenheit 2016-05-11 Heart Rate 88 bpm 2016-05-11 Respiratory Rate 20 2016-05-11 BMI 41.31 kg/m2 2016-05-11 Blood pressure systolic 122 mmHg 2016-05-11 Blood pressure diastolic 78 mmHg 2016-05-11 MEDICATIONS Medication Instructions Dosage Frequency Start Date End Date Duration Status Lovastatin 10 MG Orally Once a day 1 tablet with a meal 24h Feb, 90 Active Cipro 250 MG Orally every 12 hrs 1 tablet 12h Apr, Apr, 03 days Active Paxil 10 MG Orally Once a day 1 tablet in the morning 24h Feb, 30 day(s) Active RESULTS No Results PROCEDURES No Known procedures IMMUNIZATIONS No Known Immunizations MEDICAL (GENERAL) HISTORY Type Description Date Medical History Bipolar Disorder Surgical History cholecystectomy 2000 Surgical History tubal ligation 2002 Surgical History hysterectomy 2013 Hospitalization History Childbirth Hospitalization History Mental Breakdown 2012
--- OUTSIDE RECORDS SUMMARY | 2018-02-25 00:19 | XMS REPORT ---
Author Author CRISTA DAVIS [facility] Address [address] [place] [address] Care Team Providers Care Insulation Estimator Name Role Phone CRISTA DAVIS Unavailable PROBLEMS Type Condition ICD9-CM Code FXU52-CE Code Onset Dates Condition Status SNOMED Code Problem Anxiety, generalized F41.1 Active 55994145 Problem Bipolar 1 disorder with moderate carin F31.12 Active 14413760 Problem Severe episode of recurrent major depressive disorder, without psychotic features F33.2 Active 62133940 Problem Abnormal glucose level R73.09 Active 067908351 Problem Hyperlipidemia LDL goal <100 E78.5 Active 33297497 Problem Elevated rheumatoid factor R76.8 Active 940392242 Problem 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 Active 713738768 Problem Mild episode of recurrent major depressive disorder F33.0 Active 016875556 Problem Arthralgia, unspecified joint M25.50 Active 66172080 Problem Lumbago with sciatica, left side M54.42 Active 860080545 Problem Elevated blood sugar level R73.9 Active 41712004 Problem Hx of bipolar disorder Z86.59 Active 095749853 ALLERGIES No Information ENCOUNTERS Encounter Location Date Diagnosis [facility] [address] [place] [address] 08550- [address]145 July, Lumbago with sciatica, left side M54.42 [facility] [address], [place] [address] Jun, [facility] [id number] [place] [address] 31230- 1884 Jun, [facility] [address], [place] [address] May, Lumbago with sciatica, left side M54.42 [place] [address] [place] [address] 08560- 5056 May, [place] [address] [address]- 6810 Apr, 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 and BMI 40.0-44.9, adult Z68.[address] [address]- 3049 Apr, [place] [address] [place] [address] 16146- 0962 Apr, Mild episode of recurrent major depressive disorder F33.0 and BMI 40.0-44.9, adult Z68.41 [place] [address] [place] [address] 95073- 3681 Mar, Hyperlipidemia LDL goal <100 E78.5 [place] [id number] [place] [address] 03754- 2559 Mar, [place] [address] [place] [address] 51482- 3243 Mar, Hyperlipidemia LDL goal <100 E78.5 ; Elevated blood sugar level R73.9 and Elevated rheumatoid factor R76.8 [place] [id number] [place] [address] 64040- 5371 Mar, Arthralgia, unspecified joint M25.50 ; BMI 40.0-44.9, adult Z68.41 ; Lumbago with sciatica, left side M54.42 ; Hyperlipidemia LDL goal <100 E78.5 and Hx of bipolar disorder Z86.59 [place] [id number] [place] [address] 30888- 8888 Mar, [facility] IN [facility] [address] [place] [address] 81728 -1349 Feb, Other viral agents as the cause of diseases classified elsewhere B97.89 ; Acute upper respiratory infection, unspecified J06.9 and BMI 40.0-44.9, adult Z68.41 [place] [address] [place] [address] 81963- 6301 Jun, Positive depression screening R68.89 ; Anxiety, generalized F41.1 and Severe episode of recurrent major depressive disorder, without psychotic features F33.[address] 05567- 5123 Jun, Anxiety, generalized F41.1 ; Severe episode of recurrent major depressive disorder, without psychotic features F33.2 and Bipolar 1 disorder with moderate carin F31.[address] 62721- 9994 Jun, [place] [address]302 4519 Apr, Puncture wound T14.8 and Struck by chicken, initial encounter W61.32XA [address] 66945- 7526 Apr, Puncture wound T14.8 and Struck by chicken, initial encounter W61.32XA [address] 626050- 6526 Apr, [address] 01172- 9090 Apr, Fever, unspecified fever cause R50.9 and Eustachian tube dysfunction, bilateral H69.83 [place] [address] [place] [address] 89839- 8854 Feb, Severe episode of recurrent major depressive disorder, without psychotic features F33.2 and Hyperlipidemia LDL goal <100 E78.5 [place] 6[place]27313- 3827 Jan, Anxiety, generalized F41.1 ; Severe episode of recurrent major depressive disorder, without psychotic features F33.2 ; Bipolar 1 disorder with moderate carin F31.12 and Positive depression screening R68.89 [address] Jan, Chest discomfort R07.89 and Positive depression screening R68.89 [facility] [address] [facility] [id number] [address] [address] Oct, Laceration T14.8 [facility] [address] [facility] [id number] [id number] Aug, Dental examination V72.2 IMMUNIZATIONS No Known Immunizations SOCIAL HISTORY Never Assessed REASON FOR VISIT Refill request PLAN OF CARE VITAL SIGNS MEDICATIONS Medication Instructions Dosage Frequency Start Date End Date Duration Status Indomethacin 50 mg Orally Twice a day 1 capsule with food or milk 12h Mar, 45 days Active RESULTS No Results PROCEDURES No [...]
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
--- OUTSIDE RECORDS SUMMARY | 2018-02-25 00:20 | XMS REPORT ---
Author Author WIL BUTCHER Organization [facility] Address [address] [place] [address] Care Team Providers Care Banquet Lead Name Role Phone WIL BUTCHER Unavailable PROBLEMS Type Condition ICD9-CM Code EEV03-SE Code Onset Dates Condition Status SNOMED Code Problem Bipolar 1 disorder with moderate carin F31.12 Active 94138352 Problem Anxiety, generalized F41.1 Active 17172980 Problem Positive depression screening R68.89 Active 084972004934473 Problem Hyperlipidemia LDL goal <100 E78.5 Active 55297130 Problem Severe episode of recurrent major depressive disorder, without psychotic features F33.2 Active 18743013 Problem Chest discomfort R07.89 Active 884136940 ALLERGIES Substance Reaction Event Type Date Status Sulfamethoxazole-Trimethoprim Unknown Drug Allergy Apr, Active Penicillin V Potassium Unknown Drug Allergy Apr, Active Iodine Unknown Drug Allergy Apr, Active Doxy-Caps Unknown Drug Allergy Apr, Active Aspir-81 Unknown Drug Allergy Apr, Active SOCIAL HISTORY Never Assessed PLAN OF CARE Activity Details Follow Up 1 Week with PCP Madl for wound f/u Reason: VITAL SIGNS Height 63 in 2016-05-08 Weight 228.9 lbs 2016-05-08 Temperature 98.7 degrees Fahrenheit 2016-05-08 Heart Rate 92 bpm 2016-05-08 Respiratory Rate 20 2016-05-08 BMI 40.54 kg/m2 2016-05-08 Blood pressure systolic 133 mmHg 2016-05-08 Blood pressure diastolic 79 mmHg 2016-05-08 MEDICATIONS Medication Instructions Dosage Frequency Start Date End Date Duration Status Clindamycin HCl 300 MG Orally every 8 hrs 1 capsule 8h Apr,May 10 days Active Paxil 10 MG Orally Once a day 1 tablet in the morning 24h Feb, 30 day(s) Active Lovastatin 10 MG Orally Once a day 1 tablet with a meal 24h Feb, 90 Active RESULTS No Results PROCEDURES No Known procedures IMMUNIZATIONS No Known Immunizations MEDICAL (GENERAL) HISTORY Type Description Date Medical History Bipolar Disorder Surgical History cholecystectomy 2000 Surgical History tubal ligation 2002 Surgical History hysterectomy 2013 Hospitalization History Childbirth Hospitalization History Mental Breakdown 2011
--- OUTSIDE RECORDS SUMMARY | 2018-02-25 00:20 | XMS REPORT ---
Author Author PREET BOLAÑOS [facility] Address [address] [place] [address] Care Team Providers Care Health And Safety Instructor Name Role Phone PREET BOLAÑOS Unavailable PROBLEMS Type Condition ICD9-CM Code [id number]-VW Code Onset Dates Condition Status SNOMED Code Problem Bipolar 1 disorder with moderate carin F31.12 Active 14073044 Problem Anxiety, generalized F41.1 Active 82830987 Problem Positive depression screening R68.89 Active 068539203663002 Problem Hyperlipidemia LDL goal <100 E78.5 Active 24483382 Problem Severe episode of recurrent major depressive disorder, without psychotic features F33.2 Active 79810896 Problem Chest discomfort R07.89 Active 050148439 ALLERGIES Unknown Allergies SOCIAL HISTORY No smoking Hx information available PLAN OF CARE VITAL SIGNS MEDICATIONS Unknown Medications RESULTS No Results PROCEDURES No Known procedures IMMUNIZATIONS No Known Immunizations
--- OUTSIDE RECORDS SUMMARY | 2018-02-25 00:20 | XMS REPORT ---
Author Author PREET BOLAÑOS [facility] Address [address] [place] [address] Care Team Providers Care Baseball Hand Sewer Name Role Phone PREET BOLAÑOS Unavailable PROBLEMS Type Condition ICD9-CM Code KKL75-DP Code Onset Dates Condition Status SNOMED Code Problem Bipolar 1 disorder with moderate carin F31.12 Active 40676069 Problem Anxiety, generalized F41.1 Active 79369178 Problem Positive depression screening R68.89 Active 583587277491537 Problem Hyperlipidemia LDL goal <100 E78.5 Active 87517399 Problem Severe episode of recurrent major depressive disorder, without psychotic features F33.2 Active 91104370 Problem Chest discomfort R07.89 Active 380343985 ALLERGIES Substance Reaction Event Type Date Status Sulfamethoxazole-Trimethoprim Unknown Drug Allergy Apr, Active Penicillin V Potassium Unknown Drug Allergy Apr, Active Iodine Unknown Drug Allergy Apr, Active Doxy-Caps Unknown Drug Allergy Apr, Active Aspir-81 Unknown Drug Allergy Apr, Active SOCIAL HISTORY Never Assessed PLAN OF CARE Activity Details Follow Up prn Reason: VITAL SIGNS Height 63 in 2016-04-24 Weight 234 lbs 2016-04-24 Temperature 100.3 degrees Fahrenheit 2016-04-24 Heart Rate 90 bpm 2016-04-24 Respiratory Rate 18 2016-04-24 BMI 41.45 kg/m2 2016-04-24 Blood pressure systolic 140 mmHg 2016-04-24 Blood pressure diastolic 70 mmHg 2016-04-24 MEDICATIONS Medication Instructions Dosage Frequency Start Date End Date Duration Status Lovastatin 10 MG Orally Once a day 1 tablet with a meal 24h Feb, 90 Active Pseudoephedrine HCl 60 mg Orally every 6 hrs 1 tablet as needed 6h Apr, Active Paxil 10 MG Orally Once a day 1 tablet in the morning 24h Feb, 30 day(s) Active RESULTS Name Result Date Reference Range INFLUENZA A & B (IN HOUSE) INFLUENZA A Negative INFLUENZA B Negative Control + Lot # [id number] Exp date 09/14/2017 PROCEDURES Procedure Date Ordered Result Body Site INFLUENZA ASSAY W/OPTIC Apr 24, 2016 IMMUNIZATIONS No Known Immunizations MEDICAL (GENERAL) HISTORY Type Description Date Medical History Bipolar Disorder Surgical History cholecystectomy 2000 Surgical History tubal ligation 2002 Surgical History hysterectomy 2014 Hospitalization History Childbirth Hospitalization History Mental Breakdown 2011
--- OUTSIDE RECORDS SUMMARY | 2018-02-25 00:20 | XMS REPORT ---
Author Author SYEDA GAN [facility] Address [address] [place] [address] Care Team Providers Care Armature Connector Name Role Phone SYEDA GAN Unavailable PROBLEMS Type Condition ICD9-CM Code QOD29-KX Code Onset Dates Condition Status SNOMED Code Problem Anxiety, generalized F41.1 Active 51049707 Problem Bipolar 1 disorder with moderate carin F31.12 Active 06354018 Problem Severe episode of recurrent major depressive disorder, without psychotic features F33.2 Active 10146684 Problem Abnormal glucose level R73.09 Active 826506531 Problem Hyperlipidemia LDL goal <100 E78.5 Active 37369066 Problem Elevated rheumatoid factor R76.8 Active 128135653 Problem 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 Active 698680997 Problem Mild episode of recurrent major depressive disorder F33.0 Active 287003797 Problem Arthralgia, unspecified joint M25.50 Active 80057135 Problem Lumbago with sciatica, left side M54.42 Active 903184372 Problem Elevated blood sugar level R73.9 Active 59188824 Problem Hx of bipolar disorder Z86.59 Active 540922504 ALLERGIES Substance Reaction Event Type Date Status Sulfamethoxazole-Trimethoprim Unknown Drug Allergy Feb, Active Rocephin rash Drug Allergy Feb, Active Penicillin V Potassium Unknown Drug Allergy Feb, Active Iodine Unknown Drug Allergy Feb, Active Doxy-Caps Unknown Drug Allergy Feb, Active Aspir-81 Unknown Drug Allergy Feb, Active ENCOUNTERS Encounter Location Date Diagnosis [facility] [place] [id number] [address] July, Lumbago with sciatica, left side M54.42 [facility] [place] [id number], [place] [address] Jun, [facility] [place] [address] [place] [address] Jun, [place] [address] [place] [id number] [place] [address] May, Lumbago with sciatica, left side M54.42 [place] [address] [place] [id number] [place] [address] May, [place] [address] [address] Apr, 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 and BMI 40.0-44.9, adult Z68.41 [place] [address] [place] [id number] [place] [address] Apr, [place] [address] [place] [id number] [place] [address] Apr, Mild episode of recurrent major depressive disorder F33.0 and BMI 40.0-44.9, adult Z68.41 [place] [address] [place] [id number] [place] [address] Mar, Hyperlipidemia LDL goal <100 E78.5 [place] [address] [place] [id number] [place] [address] Mar, [place] [address] [place] [id number] [place] [address]- [address] Mar, Hyperlipidemia LDL goal <100 E78.5 ; Elevated blood sugar level R73.9 and Elevated rheumatoid factor R76.8 [place] [address] [place] [id number] [place] [address] Mar, Arthralgia, unspecified joint M25.50 ; BMI 40.0-44.9, adult Z68.41 ; Lumbago with sciatica, left side M54.42 ; Hyperlipidemia LDL goal <100 E78.5 and Hx of bipolar disorder Z86.59 [place] [address] [place] [id number] [place] [address] Mar, [facility] [address] [place] [address] Feb, Other viral agents as the cause of diseases classified elsewhere B97.89 ; Acute upper respiratory infection, unspecified J06.9 and BMI 40.0-44.9, adult Z68.[address] [place] [address]- [address] Jun, Positive depression screening R68.89 ; Anxiety, generalized F41.1 and Severe episode of recurrent major depressive disorder, without psychotic features F33.2 [place] [address] [place] [address]- [address] Jun, Anxiety, generalized F41.1 ; Severe episode of recurrent major depressive disorder, without psychotic features F33.2 and Bipolar 1 disorder with moderate carin F31.12 [place] [address] [place] [address] Jun, [place] [address] [id number] [place] [address] Apr, Puncture wound T14.8 and Struck by chicken, initial encounter W61.32XA [place] [address] [place] [address] Apr, Puncture wound T14.8 and Struck by chicken, initial encounter W61.32XA [address] [place] [address]- [address] Apr, [place] [address] [place] [address]- [address] Apr, Fever, unspecified fever cause R50.9 and Eustachian tube dysfunction, bilateral H69.83 [place] [address] [place] [address]- [address] Feb, Severe episode of recurrent major depressive disorder, without psychotic features F33.2 and Hyperlipidemia LDL goal <[address] [place] [address] Jan, 2016 Anxiety, generalized F41.1 ; Severe episode of recurrent major depressive disorder, without psychotic features F33.2 ; Bipolar 1 disorder with moderate carin F31.12 and Positive depression screening R68.89 [facility] [place] [id number], [place] [address] 30 Jan, 2016 Chest discomfort R07.89 and Positive depression screening R68.89 [facility] [id number], [place] [address] Oct, Laceration T14.8 [facility] [address] [place] [id number] Aug, Dental examination V72.2 IMMUNIZATIONS No Known Immunizations SOCIAL HISTORY Never Assessed REASON FOR VISIT Congestion and cold x9 days JStrasserRN PLAN OF CARE Activity Details Follow Up prn Reason: VITAL SIGNS Height 63 in 2017-02-27 Weight 232 lbs 2017-02-27 Temperature 97.4 degrees Fahrenheit 2017-02-27 Heart Rate 76 bpm 2017-02-27 Respiratory Rate 22 2017-02-27 BMI 41.09 kg/m2 2017-02-27 Blood pressure systolic 122 mmHg 2017-02-27 Blood pressure diastolic 78 mmHg 2017-02-27 MEDICATIONS Medication Instructions Dosage Frequency Start Date End Date Duration Status Meloxicam 15 MG Orally Once a day 1 tablet 24h Jun, 30 day(s) Not-Taking Paxil 10 MG Orally Once a day 1 tablet in the morning 24h Feb, 30 day(s) Not-Taking Lovastatin 10 MG Orally Once a day 1 tablet with a meal 24h Feb, 90 Not-Taking RESULTS No Results PROCEDURES No Known procedures [...]
--- OUTSIDE RECORDS SUMMARY | 2018-02-25 00:20 | XMS REPORT ---
Author Author CRISTA DAVIS Organization [facility] Address [address] [place] [address] Care Team Providers Care Electrical Tester Name Role Phone CRISTA DAVIS Unavailable PROBLEMS Type Condition ICD9-CM Code APR19-CL Code Onset Dates Condition Status SNOMED Code Problem Anxiety, generalized F41.1 Active 09544907 Problem Bipolar 1 disorder with moderate carin F31.12 Active 85641122 Problem Severe episode of recurrent major depressive disorder, without psychotic features F33.2 Active 91021189 Problem Abnormal glucose level R73.09 Active 188769566 Problem Hyperlipidemia LDL goal <100 E78.5 Active 36432702 Problem Elevated rheumatoid factor R76.8 Active 472656864 Problem 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 Active 896487049 Problem Mild episode of recurrent major depressive disorder F33.0 Active 979261774 Problem Arthralgia, unspecified joint M25.50 Active 05395913 Problem Lumbago with sciatica, left side M54.42 Active 830005631 Problem Elevated blood sugar level R73.9 Active 16190814 Problem Hx of bipolar disorder Z86.59 Active 487675645 ALLERGIES Substance Reaction Event Type Date Status Sulfamethoxazole-Trimethoprim Unknown Drug Allergy Mar, Active Rocephin rash Drug Allergy Mar, Active Penicillin V Potassium Unknown Drug Allergy Mar, Active Iodine Unknown Drug Allergy Mar, Active Doxy-Caps Unknown Drug Allergy Mar, Active Aspir-81 Unknown Drug Allergy Mar, Active ENCOUNTERS Encounter Location Date Diagnosis [facility] [id number], [place] [address] July, Lumbago with sciatica, left side M54.42 [facility] [address] [facility] [id number] [address] Jun, [facility] [address], [place] [address] Jun, [id number] [place] [address] May, Lumbago with sciatica, left side M54.42 [address] [place] [address] May, [id number] [place] [address] Apr, 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 and BMI 40.0-44.9, adult Z68.41 [id number] [place] [address] Apr, [id number] [place] [address] Apr, Mild episode of recurrent major depressive disorder F33.0 and BMI 40.0-44.9, adult Z68.41 [id number] [place] [address] Mar, Hyperlipidemia LDL goal <100 E78.5 [id number] [place] [address] Mar, [address], [place] [address] Mar, Hyperlipidemia LDL goal <100 E78.5 ; Elevated blood sugar level R73.9 and Elevated rheumatoid factor R76.8 [address], [place] [address] Mar, Arthralgia, unspecified joint M25.50 ; BMI 40.0-44.9, adult Z68.41 ; Lumbago with sciatica, left side M54.42 ; Hyperlipidemia LDL goal <100 E78.5 and Hx of bipolar disorder Z86.59 [id number] [place] [address] Mar, [facility] [address], [place] [address] Feb, Other viral agents as the cause of diseases classified elsewhere B97.89 ; Acute upper respiratory infection, unspecified J06.9 and BMI 40.0-44.9, adult Z68.41 [id number] [place] [address] Jun, Positive depression screening R68.89 ; Anxiety, generalized F41.1 and Severe episode of recurrent major depressive disorder, without psychotic features F33.2 [id number] [place] [address] Jun, Anxiety, generalized F41.1 ; Severe episode of recurrent major depressive disorder, without psychotic features F33.2 and Bipolar 1 disorder with moderate carin F31.12 [id number] [place] [address] Jun, [id number] [place] [address] Apr, Puncture wound T14.8 and Struck by chicken, initial encounter W61.32[id number] [place] [address] Apr, Puncture wound T14.8 and Struck by chicken, initial encounter W61.32[id number] [place] [address] Apr, [id number] [place] [address] Apr, Fever, unspecified fever cause R50.9 and Eustachian tube dysfunction, bilateral H69.83 [id number] [place] [address] Feb, Severe episode of recurrent major depressive disorder, without psychotic features F33.2 and Hyperlipidemia LDL goal <100 E78.5 [id number] [place] [address] Jan, 2016 Anxiety, generalized F41.1 ; Severe episode of recurrent major depressive disorder, without psychotic features F33.2 ; Bipolar 1 disorder with moderate carin F31.12 and Positive depression screening R68.89 [facility] [id number], [place] [address] 30 Jan, 2016 Chest discomfort R07.89 and Positive depression screening R68.89 [facility] [address], [place] [address] 13 Oct, 2015 Laceration T14.8 [facility] [id number] [place] [id number] Aug, Dental examination V72.2 IMMUNIZATIONS No Known Immunizations SOCIAL HISTORY Never Assessed REASON FOR VISIT Joint Pain, ongoing for some time, it is effecting pt at work, mainly her hips down-AHarrymanRN PLAN OF CARE Activity Details Follow Up pending lab and xray 6 weeks Reason:arthralgia VITAL SIGNS Height 63 in 2017-04-10 Weight 238.0 lbs 2017-04-10 Temperature 97.6 degrees Fahrenheit 2017-04-10 Heart Rate 84 bpm 2017-04-10 Respiratory Rate 20 2017-04-10 BMI 42.16 kg/m2 2017-04-10 Blood pressure systolic 130 mmHg 2017-04-10 Blood pressure diastolic 82 mmHg 2017-04-10 MEDICATIONS Medication Instructions Dosage Frequency Start Date End Date Duration Status Indomethacin 50 mg Orally Twice a day 1 capsule with food or milk 12h Mar, May, 45 days Active Lovastatin 10 MG Orally Once a day 1 tablet with a meal 24h Feb, 90 Not-Taking Meloxicam 15 MG Orally Once a day 1 tablet 24h Jun, 30 day(s) Not-Taking Paxil 10 MG Orally Once a day 1 tablet in the morning 24h Feb, 30 day(s) Not-Taking RESULTS No Results PROCEDURES Procedure Date Ordered Result Body Site VENIPUNCT, ROUTINE* Apr 10, 2017 RHEUMATOID FACTOR, QUANT Apr 10, 2017 RBC SED RATE, AUTOMATED Apr 10, 2017 COMPREHEN METABOLIC PANEL Apr 10, 2017 ASSAY THYROID STIM HORMONE Apr 10, 2017 C-REACTIVE PROTEIN Apr 10, 2017 ANTINUCLEAR ANTIBODIES Apr 10, 2017 LIPID PANEL Apr 10, 2017 X-RAY EXAM OF LOWER SPINE Apr 10, 2017 INSTRUCTIONS MEDICATIONS ADMINISTERED No Known Medications [...]
[2018-02-25] MEDS ORDERED: KETOROLAC 60 MG/2 ML VIAL IM STA (01:11)
[2018-02-25] MEDS ORDERED: ORPHENADRINE 60 MG/2 ML (NORFLEX) AMP IM STA (01:11)
[2018-02-25] MEDS ORDERED: ORPHENADRINE 60 MG/2 ML (NORFLEX) AMP ONE (01:14)
[2018-02-25] MEDS ORDERED: NAPR-915 PO (01:14)
[2018-02-25] MEDS ORDERED: CYCL10TA9 PO (01:14)
[2018-02-25] MEDS ORDERED: KETOROLAC 60 MG/2 ML VIAL ONE (01:14)
--- NOTE | 2018-02-25 01:14 | ED Back Pain ---
General Chief Complaint: Chest Wall/Rib Pain Stated Complaint: LFT SIDE RIB PAIN Nursing Triage Note: AMBULATORY TO ED WITH C/O PAIN TO LEFT SHOULDER AND DOWN BACK TO LEFT RIB AREA. STATES SHE GETS SOA AT TIMES. DENIES COUGH, FEVER, N/V. 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 HAS BEEN AT SAME JOB FOR 2 YEARS, NO EXCESSIVE LIFTING, ETC. PAIN IS WORSE WITH MOVING, CERTAIN POSITIONS, RAISING ARMS OVER HEAD-- ESPECIALLY THE LEFT ARM. PAIN ALSO WORSE WITH DEEP BREATHING NO PARESTHESIAS OR MOTOR DEFICITS FEELS SLIGHTLY SHORT OF BREATH WITH PAIN NO PARESTHESIAS OR MOTOR DEFICITS NO ANTERIOR CHEST PAIN NO SWEATS NO COUGH NO FEVER NO PALPITATIONS HAS NOT SOUGHT CARE UNTIL TODAY HAS NOT TAKEN ANYTHING FOR PAIN AT ANY TIME NO HISTORY OF PAIN IN THIS PART OF BACK, BUT DOES HAVE CHRONIC SCIATICA OF LEFT LEG, AND HAS BEEN ON GABAPENTIN FOR A FEW MONTHS FOR IT PT ALSO STARTED ENBREL 1 MONTH AGO FOR R.A. PT HAS HISTORY OF UTERINE CANCER--S/P HYST 2014--NO CHEMO, NO RADIATION, NO ONCOLOGY FOLLOW UP Other Comments PCP: HAS BEEN A PT AT [facility]. HAS BEEN SEEING DR. GARCIA WITH [facility]VI MIXER OPERATOR: [facility]ARGO NO ONCOLOGIST Allergies and Home Medications Allergies Coded Allergies: Penicillins (Verified Allergy, Mild, 10/24/14) Sulfa (Sulfonamide Antibiotics) (Verified Allergy, Mild, 10/24/14) aspirin (Verified Allergy, Mild, 10/24/14) Home Medications Cyclobenzaprine HCl 10 Mg Tablet, 10 MG PO Q8H Prescribed by: DORAIN BANKS on 02/25/18 0114 Naproxen 500 Mg Tablet, 500 MG PO BID Prescribed by: DORIAN BANKS on 02/25/18 0114 [Orudis] , 75 MG PO Q8H PRN for PAIN Prescribed by: ARACELI ODELL on 10/24/14 0713 Patient Home Medication List Home Medication List Reviewed: Yes Review of Systems Constitutional: no symptoms reported Respiratory: see HPI Cardiovascular: no symptoms reported Gastrointestinal: no symptoms reported Genitourinary: no symptoms reported Musculoskeletal: see HPI, back pain Skin: no symptoms reported Psychiatric/Neurological: No Symptoms Reported Past Jokutsb-Iaoxno-[place]mgmia Hx Patient Social History Alcohol Use: Denies Use Recreational Drug Use: No Smoking Status: Never a Smoker 2nd Hand Smoke Exposure: No Recent Foreign Travel: No Contact w/Someone Who Travel: No Recent Infectious Disease Expo: No Recent Hopitalizations: No Seasonal Allergies Seasonal Allergies: No Past Medical History Surgeries: Yes Gallbladder, Hysterectomy, Tubal Ligation Respiratory: No Cardiac: No Neurological: No Reproductive Disorders: Yes (UTERINE CANCER) SERVER ENGINEER History: Hysterectomy Genitourinary: No Gastrointestinal: No Musculoskeletal: Yes Rheumatoid Arthritis Endocrine: Yes Hypothyroidsim HEENT: No Cancer: Yes Uterine Did You Recieve Any Treatments: Yes (UTERINE CANCER DX 2014, S/P HYST--NO CHEMO OR RADIATION. NO ONCOLOGY FOLLOW UP ) What Type of Treatment Did You: Surgical Intervention Psychosocial: No Integumentary: No Blood Disorders: No Physical Exam Vital Signs Vital Signs - First Documented 02/25/18 00:22 Temp 98.0 Pulse 99 Resp 17 B/P (MAP) 132/97 (109) Capillary Refill : Less Than 3 Seconds Height, Weight, BMI Height: 5'3.00" Weight: 240lbs. oz. 108.446333ek; 35.42 BMI Method:Stated General Appearance: No Apparent Distress, Obese, Other (HOLDS UPPER BODY VERY STIFFLY ON EXAM, BUT WHEN NOT BEING EXAMINED, PT IS SITTING ON SIDE OF BED LEANING FORWARD AND PLAYING/ TEXTING ON PHONE. ) Neck: Full Range of Motion, Normal Inspection, Non Tender, Supple Cardiovascular: Regular Rate, Rhythm, No Edema, No JVD, No Murmur, Normal Peripheral Pulses Respiratory: Chest Non Tender, Normal Breath Sounds, No Accessory Muscle Use, No Respiratory Distress Gastrointestinal: Normal Bowel Sounds, No Organomegaly, No Pulsatile Mass, Non Tender, Soft Back: No Vertebral Tenderness, Decreased Range of Motion, Other (TENDERNESS TO LEFT UPPER BACK--SCAPULAR AND POSTERIOR RIBS. MILD SPASMS. PALPATION REPRODUCES PAIN. NO FLANK TENDERNESS. NO RASH. LIMITED ROM DUE TO PAIN ) Extremity: Normal Capillary Refill, Normal Inspection, Normal Range of Motion, Non Tender, No Calf Tenderness Neurologic/Psychiatric: Alert, Oriented x3, No Motor/Sensory Deficits, Normal Mood/Affect, access control officer II-XII Norm as Tested Skin: Normal Color, Warm/Dry; No Rash; Tattoos/Piercings Progress/Results/Core Measures Results/Orders My Orders Orders - DORIAN BANKS DO Chest Pa/Lat (2 View) (02/25/18 00:46) Ribs, Left 2-3 Views (02/25/18 00:46) Ketorolac Injection (Toradol Injection) (02/25/18 01:11) Orphenadrine Injection (Norflex Injectio (02/25/18 01:11) Vital Signs/I&O 02/25/18 00:22 Temp 98.0 Pulse 99 Resp 17 B/P (MAP) 132/97 (109) Blood Pressure Mean: 109 Diagnostic Imaging Comments CXR AND LEFT RIBS XRAYS--NO ACUTE PROCESS, POOR INSPIRATION WITH BIBASILAR ATELECTASIS--PENDING RADIOLOGIST REVIEW Reviewed: Reviewed by Me Departure Impression Primary Impression: Muscle strain of left upper back Disposition: HOME, SELF-CARE Condition: Stable Departure-Patient Inst. Referrals: [facility] (PCP) Primary Care Physician CRISTA DAVIS (Family) Primary Care Physician Patient Instructions: Muscle Strain (DC), Upper Back Pain (DC) Add. Discharge Instructions: MOIST HEAT TO AREA AT 20 MINUTE INTERVALS NO LIFTING OVER 5 LBS,NO TWISTING OR BENDING AT WAIST X 1 WEEK FOLLOW UP WITH YOUR REGULAR DR IN 1 WEEK FOR RECHECK All discharge instructions reviewed with patient and/or family. Voiced understanding. Scripts Cyclobenzaprine HCl (Cyclobenzaprine HCl) 10 Mg Tablet 10 MG PO Q8H, #15 TAB Prov: DORIAN BANKS DO 02/25/18 Naproxen (Naproxen) 500 Mg Tablet 500 MG PO BID, #20 TAB Prov: DORIAN BANKS DO 02/25/18 Work/School Note: Work Release Form Date Seen in the Emergency Department: Feb 25, 2018 Return to Work: Feb 26, 2018 Restrictions: Need Release from Doctor Other Restrictions Listed Below: NO LIFTING OVER 5 LBS, NO TWISTING OR BENDING AT WAIST X 1 WEEK Images Torso/Trunk 1 - Muscle Spams, Tenderness DORIAN BANKS DO Feb 25, 2018 01:14
[2018-02-25 01:37] VITALS: BP 132/97
--- NOTE | 2018-02-25 07:48 | Diagnostic Imaging Report ---
EXAMINATION: Left ribs, 3 views. COMPARISON: None. HISTORY: 37-year-old female, left chest pain. No known injury. FINDINGS: There is nonspecific left greater than right bibasilar airspace consolidation which may relate to infiltrate, atelectasis, and/or small effusions. Right upper quadrant surgical clips likely relate to prior cholecystectomy. There is no identified left rib fracture. There is no obvious bone lesion. IMPRESSION: 1. Nonspecific bibasilar airspace consolidation which may relate to infiltrate, atelectasis, and/or small effusions. 2. No identified rib fracture. Dictated by: Dictated on workstation # [id number]
--- NOTE | 2018-02-25 07:54 | Diagnostic Imaging Report ---
EXAMINATION: CHEST (PA AND LATERAL) CLINICAL INDICATION: 37-year-old female, left chest pain. COMPARISON: None. FINDINGS: Heart size and mediastinal contours are unremarkable. There is no identified pneumothorax. There is no identified sizable pleural effusion. There is streaky opacity within the right and left lung bases. Right upper quadrant surgical clips likely reflect prior cholecystectomy. IMPRESSION: 1. Streaky opacities in the right and left lower lobes likely relating to infiltrate and/or atelectasis. Faxed to ER at 7:48 a.m. by cvb Dictated by: Dictated on workstation # [id number]
== END 2018-02-25 01:37 | disposition home or self-care (01) ==
LOC: EDUNIT# 00:12 → ER 00:14
DX: S29.012A Strain of muscle and tendon of back wall of thorax, initial encounter (principal); M06.9 Rheumatoid arthritis, unspecified; E03.9 Hypothyroidism, unspecified; Z88.2 Allergy status to sulfonamides; Z88.0 Allergy status to penicillin; Z88.6 Allergy status to analgesic agent; Z98.51 Tubal ligation status; Z90.710 Acquired absence of both cervix and uterus; Z85.42 Personal history of malignant neoplasm of other parts of uterus; X50.1XXA Overexertion from prolonged static or awkward postures, initial encounter; Y92.59 Other trade areas as the place of occurrence of the external cause; Y99.0 Civilian activity done for income or pay
CPT/HCPCS: 71046; 71100